=== PATIENT | male | born 1955 | race Caucasian/White ===

== ENCOUNTER 2017-01-08 06:41 | Emergency (ER) | payer BC ==
[~2017-01-08] VITALS: Ht 175.3 cm; Wt 96.4 kg
[2017-01-08 08:04] LABS: HEMATOCRIT 46.9 % (38.0-50.0); MCH 30.1 PG (29.0-34.0); MCHC 33.9 G/DL (30.0-36.0); MCV 88.7 FL (86-99); MEAN PLAT.VOLUME 11.5 uM^3 (9.0-12.4); PLATELET COUNT 182 K/uL (156-360); RBC DIS.WIDTH-CV 12.3 % (11.8-14.6); RBC DIS.WIDTH-SD 39.6 % (39-53); RED BLOOD COUNT 5.29 M/uL (4.00-5.50)
[2017-01-08 08:15] LABS: CHLORIDE 107 mEq/L (99-109); POTASSIUM 4.1 mEq/L (3.7-5.4); SODIUM 143 mEq/L (136-147)
[2017-01-08 08:15] LABS: ADD MIUA? NO; BILIRUBIN NEGATIVE; BLOOD NEGATIVE; COLOR YELLOW ((YELLOW)); GLUCOSE (STRIP) NEGATIVE; KETONES NEGATIVE; LEUKOCYTES NEGATIVE; NITRITE NEGATIVE; PROTEIN (STRIP) NEGATIVE; SPECIFIC GRAVITY 1.014 (1.000-1.030); UCUL ADDED? NO; UROBILINOGEN 0.2 MG/DL (0.2-1.0)
[2017-01-08] MEDS ORDERED: SIMVASTATIN20 MG PO (08:16)
[2017-01-08 08:17] LABS: GLUCOSE 155 mg/dL (70-99)
[2017-01-08] MEDS ORDERED: VALSARTAN160 MG PO (08:17)
[2017-01-08] MEDS ORDERED: FENOFIBRATE145 M1 PO (08:17)
[2017-01-08] MEDS ORDERED: METOPROLOL TART50 MG PO (08:18)
[2017-01-08 08:19] LABS: ANION GAP 11 MEQ/L (2-14); TOTAL BILIRUBIN 0.6 mg/dL (0.0-1.0)
[2017-01-08 08:21] LABS: ALKALINE PHOSPHATASE 39 IU/L (3-129); GFR ESTIMATE (CALCULATED) > 59 mL/min/
[2017-01-08 08:22] LABS: UREA NITROGEN (BUN) 11 mg/dL (9-23)
[2017-01-08] MEDS ORDERED: FLAGYL500 MG PO (09:19)
[2017-01-08] MEDS ORDERED: CIPRO500 MG PO (09:19)
[2017-01-08 09:54] VITALS: BP 166/105
== END 2017-01-08 09:56 | disposition home or self-care (01) ==
LOC: EME 06:41
DX: K57.92 Diverticulitis of intestine, part unspecified, without perforation or abscess without bleeding (principal); N20.0 Calculus of kidney; K76.0 Fatty (change of) liver, not elsewhere classified; I10 Essential (primary) hypertension; E78.5 Hyperlipidemia, unspecified; Z87.891 Personal history of nicotine dependence
CPT/HCPCS: 74176; 80053; 81003; 85027; 93005; 99281; 99285; J3010; J7030